=== PATIENT | male | born 1985 | race Caucasian/White ===

== ENCOUNTER 2018-09-16 21:56 | Emergency (ER) | payer OTHER ==
[2018-09-16] MEDS ORDERED: NS 1,000 ML IV ONE (22:11)
--- NOTE | 2018-09-16 22:11 | EDPHY ---
H & P Stated Complaint: Epigastric pain, wraps around to his back, nausea x2hrs Time Seen by Provider: 09/16/18 22:11 HPI/ROS: HPI CHIEF COMPLAINT: Abdominal pain HISTORY OF PRESENT ILLNESS: 33-year-old male, otherwise healthy, presents emergency room with right upper quadrant epigastric abdominal pain. He states this started around 6:00 p.m. Tonight. It acutely got worse. States the epigastric right upper quadrant region. Sometimes goes to his back. He denies any lower abdominal pain, he has had nausea no vomiting. No diarrhea no lower abdominal pain, no urinary symptoms. Denies any chest pain or shortness of breath. Past Medical History: Denies significant medical history Past Surgical History: Leg surgery Social History: Denies daily use of drugs alcohol tobacco Family History: Noncontributory ROS REVIEW OF SYSTEMS: 10 Systems were reviewed and negative with the exception of the elements mentioned in the history of present illness. Exam Constitutional triage nursing summary reviewed, vital signs reviewed, awake/ alert. Eyes normal conjunctivae and sclera, EOMI, PERRLA. HENT normal inspection, atraumatic, moist mucus membranes, no epistaxis, neck supple/ no meningismus, no raccoon eyes. Respiratory clear to auscultation bilaterally, normal breath sounds, no respiratory distress, no wheezing. Cardiovascular rate normal, regular rhythm, no murmur, no edema, distal pulses normal. Gastrointestinal mild tender palpation epigastric and right upper quadrant no rebound, no guarding, normal bowel sounds, no distension, no pulsatile mass. Genitourinary no CVA tenderness. Musculoskeletal no midline vertebral tenderness, full range of motion, no calf swelling, no tenderness of extremities, no meningismus, good pulses, neurovascularly intact. Skin pink, warm, & dry, no rash, skin atraumatic. Neurologic awake, alert and oriented x 3, AAOx3, moves all 4 extremities equally, motor intact, sensory intact, CN II-XII intact, normal cerebellar, normal vision, normal speech. Psychiatric normal mood/affect. Heme/Lymph/Immune no lymphadenopathy. Differential Diagnosis: Differential diagnosis includes but is not limited to and in no particular order: Bowel obstruction, appendicitis, gallbladder disease, diverticulitis, colitis, enteritis, perforated viscus, gastritis, GERD , esophagitis, urinary tract infection, pyelonephritis, kidney stones Medical Decision Making: Plan for this patient IV establishment IV fluid bolus IV Dilaudid 1 mg for pain control IV Zofran 4 mg for nausea ultrasound right upper quadrant evaluate gallbladder, check lipase, LFTs, basic labs re-evaluate. Re-evaluation: Ultrasound of the right upper quadrant limited due to bowel gas. No evidence of gallstones. Given patient's abdominal pain will proceed with CT scan abdomen pelvis with IV contrast to help delineate abdominal pain given his ultrasound was limited. CT scan abdomen pelvis with IV contrast shows no acute intra-abdominal or pelvic abnormality. Faxed to me by direct Radiology time 12:45 a.m.. Labs reviewed. Patient re-evaluated 2:24 a.m. Resting comfortably without any abdominal pain denies chest pain or shortness of breath. Abdomen is soft nontender. He would like to go home. I Explained that is ultrasound, CT scan lab work, showed no evidence of acute inflammatory process. It is possible he has gastritis versus peptic ulcer disease. I do recommend care faint and following up with GI. Also discussed return precautions with him return emergency room if worsening abdominal pain, fever, vomiting, not doing well. Patient is comfortable this plan. EKG interpretation by me on record in [employer] system. Impression time of EKG 2:30 a.m., this is sinus rhythm rate of 82, no signs of acute ischemia. Source: Patient - Personal History Current Tetanus Diphtheria and Acellular Pertussis (TDAP): Yes Tetanus Vaccine Date: 2014 - Medical/Surgical History Hx Asthma: No Hx Chronic Respiratory Disease: No Hx Diabetes: No Hx Cardiac Disease: No Hx Renal Disease: No Hx Cirrhosis: No Hx Alcoholism: No Hx HIV/AIDS: No Hx Splenectomy or Spleen Trauma: No Other PMH: High Cholesterol - Social History Smoking Status: Never smoked Constitutional: Initial Vital Signs Temperature (C) 37.1 C 09/16/18 21:57 Heart Rate 66 09/16/18 21:57 Respiratory Rate 17 09/16/18 21:57 Blood Pressure 144/94 H 09/16/18 21:57 O2 Sat (%) 97 09/16/18 21:57 O2 Delivery Mode Room Air Allergies/Adverse Reactions: No Known Allergies Allergy (Unverified 09/16/18 22:00) Home Medications: Medication Instructions Recorded Sucralfate [Carafate 1 GM (*)] 1 gm PO ACHS #30 tab 09/17/18 Medical Decision Making - Diagnostics Imaging Results: Imaging Impressions Abdomen Ultrasound 09/16/18 22:17 Impression: 1. Somewhat limited study secondary to upper dominant bowel gas; no cholelithiasis. 2. The liver is enlarged and demonstrates heterogeneous echogenicity, steatosis versus hepatocellular disease. Results called and discussed with Jayme Davila MD on 09/16/2018 at 23:22. - Data Points Laboratory Results: Laboratory Results 09/16/18 22:14 09/16/18 22:14 09/16/18 09/16/18 09/16/18 23:00 22:14 22:14 WBC 10.49 10^3/uL H 10^3/uL (3.80-9.50) RBC 5.49 10^6/uL 10^6/uL (4.40-6.38) Hgb 17.8 g/dL H g/dL (13.7-17.5) Hct 50.5 % % (40.0-51.0) MCV 92.0 fL fL (81.5-99.8) MCH 32.4 pg pg (27.9-34.1) MCHC 35.2 g/dL g/dL (32.4-36.7) RDW 12.1 % % (11.5-15.2) Plt Count 287 10^3/uL 10^3/uL (150-400) MPV 10.4 fL fL (8.7-11.7) Neut % (Auto) 45.8 % % (39.3-74.2) Lymph % (Auto) 43.5 % % (15.0-45.0) [place] % (Auto) 8.8 % % (4.5-13.0) Eos % (Auto) 1.0 % % (0.6-7.6) Baso % (Auto) 0.6 % % (0.3-1.7) Nucleat RBC Rel Count 0.0 % % (0.0-0.2) Absolute Neuts (auto) 4.82 10^3/uL 10^3/uL (1.70-6.50) Absolute Lymphs (auto) 4.56 10^3/uL H 10^3/uL (1.00-3.00) Absolute Monos (auto) 0.92 10^3/uL H 10^3/uL (0.30-0.80) Absolute Eos (auto) 0.10 10^3/uL 10^3/uL (0.03-0.40) Absolute Basos (auto) 0.06 10^3/uL 10^3/uL (0.02-0.10) Absolute Nucleated RBC 0.00 10^3/uL 10^3/uL (0-0.01) Immature Gran % 0.3 % % (0.0-1.1) Immature Gran # 0.03 10^3/uL 10^3/uL (0.00-0.10) Sodium 137 mEq/L mEq/L (135-145) Potassium 3.7 mEq/L mEq/L (3.5-5.2) Chloride 100 mEq/L mEq/L (97-110) Carbon Dioxide 26 mEq/l mEq/l (22-31) Anion Gap 11 mEq/L mEq/L (6-14) BUN 17 mg/dL mg/dL (7-23) Creatinine 1.0 mg/dL mg/dL (0.7-1.3) Estimated GFR > 60 Glucose 103 mg/dL H mg/dL (70-100) Calcium 9.3 mg/dL mg/dL (8.5-10.4) Total Bilirubin 0.8 mg/dL mg/dL (0.1-1.4) Conjugated Bilirubin 0.1 mg/dL mg/dL (0.0-0.5) Unconjugated Bilirubin 0.7 mg/dL mg/dL (0.0-1.1) AST 31 IU/L IU/L (17-59) ALT 70 IU/L IU/L (21-72) Alkaline Phosphatase 105 IU/L IU/L (38-126) Total Protein 7.6 g/dL g/dL (6.3-8.2) Albumin 4.4 g/dL g/dL (3.5-5.0) Lipase 78 IU/L IU/L (23-300) Urine Color YELLOW Urine Appearance CLEAR Urine pH 6.0 (5.0-7.5) Ur Specific [place] 1.017 (1.002-1.030) Urine Protein NEGATIVE (NEGATIVE) Urine Ketones NEGATIVE (NEGATIVE) Urine Blood NEGATIVE (NEGATIVE) Urine Nitrate NEGATIVE (NEGATIVE) Urine Bilirubin NEGATIVE (NEGATIVE) Urine Urobilinogen NEGATIVE EU EU (0.2-1.0) Ur Leukocyte Esterase NEGATIVE (NEGATIVE) Urine Glucose NEGATIVE (NEGATIVE) Medications Given: Discontinued Medications Hydromorphone HCl (Dilaudid) 1 mg IVP EDNOW ONE Stop: 09/16/18 22:17 Last Admin: 09/16/18 22:25 Dose: 1 mg Sodium Chloride (Ns) 1,000 mls @ 0 mls/hr IV EDNOW ONE; Wide Open PRN Reason: Protocol Stop: 09/16/18 22:12 Last Admin: 09/16/18 22:18 Dose: 1,000 mls Ondansetron HCl (Zofran) 4 mg IVP EDNOW ONE Stop: 09/16/18 22:17 Last Admin: 09/16/18 22:25 Dose: 4 mg Departure - Departure Disposition: Home, Routine, Self-Care Clinical Impression: Abdominal pain Condition: Good Instructions: Acute Abdominal Pain (ED) Additional Instructions: 1. [place] diet over the next 24 to 48 hours, no spicy, fatty or greasy food. 2. Return to the Emergency Room if you have worsening symptoms, this includes, vomiting, fever, abdominal pain or not doing well. 3. Advance your diet slowly. Referrals: Delvis Tejeda MD [Primary Care Provider] - As per Instructions Lavon Olsen MD [Medical Doctor] - As per Instructions Prescriptions: Sucralfate [Carafate 1 GM (*)] 1 gm PO ACHS #30 tab
[2018-09-16] MEDS ORDERED: HYDROmorphONE/DILAUDID 2 MG/ML INJ IVP ONE (22:16)
[2018-09-16] MEDS ORDERED: ONDANSETRON 4 MG/2 ML VIAL IVP ONE (22:16)
[2018-09-16 22:27] LABS: PLATELET COUNT 287 10^3/uL (150-400)
[2018-09-17] MEDS ORDERED: IOPAMIDOL (ISOVUE-300) 100 ML BTL ONE (00:05)
[2018-09-17 03:44] VITALS: BP 97/63
--- NOTE | 2018-09-20 08:23 | CPEKG ---
Test Reason : OPEN Blood Pressure : / mmHG Vent. Rate : 082 BPM Atrial Rate : 079 BPM P-R Int : 169 ms QRS Dur : 083 ms QT Int : 387 ms P-R-T Axes : 038 027 013 degrees QTc Int : 452 ms Sinus rhythm Confirmed by Jayme Davila ([id number]) on 09/20/2018 8:23:12 AM Referred By: Jayme Davila Confirmed By:Jayme Davila
== END 2018-09-17 03:44 | disposition home or self-care (01) ==
DX: R10.11 Right upper quadrant pain (principal); R10.13 Epigastric pain; E86.9 Volume depletion, unspecified; K76.9 Liver disease, unspecified
CPT/HCPCS: 84484-ER; 96374; J1170; J2405; Q9967